=== PATIENT | female | born 1930 | race Caucasian/White ===

== ENCOUNTER 2018-06-12 05:49 | Inpatient (IN) ==
[2018-06-04 10:35] LABS: Basophils % 0.5 % (0.0-0.8); Eosinophils # 0.1 10*3/uL (0.0-0.87); Hematocrit 37.2 VOL% (35.7-47.0); Hemoglobin 11.8 GM/DL (12.0-16.0); Immature Granulocytes % 0.5 %; Immature Granulocytes Absolute 0.03 #; Lymphocytes # 1.2 10*3/uL (1.4-4.0); Lymphocytes % 20.4 % (21.3-54.2); Mean Corpuscular HGB Conc 31.7 GM/DL (32-36); Mean Corpuscular Hemoglobin 30 PG (27-34); Mean Corpuscular Volume 95.9 FL (87-102); Mean Platelet Volume 11.1 FL (9.6-12.0); Monocytes # 0.6 10*3/uL (0.11-0.8); Monocytes % 9.5 % (1.7-12.7); Neutrophils % 67.1 % (38.7-73.9); Platelet Count 207 T/CUMM (130-400); Red Blood Count 3.88 MC/CUMM (3.8-5.5); Red Cell Distribution Width 14.4 % (9.3-17.3)
[2018-06-04 10:54] LABS: Calcium 9.4 MG/DL (8.5-10.1); Osmolality,Calculated 278.5 MOS/KG (273-304); Potassium 4.7 MMOL/L (3.5-5.1)
[2018-06-04 10:57] LABS: Apearance,Urine CLEAR (Clear); Bilirubin,Urine Negative (Negative); Blood, Urine Large mg/dL (Negative); Glucose,Urine (UA) Negative (Negative); Ketones,Urine Negative (Negative); Nitrite,Urine Negative (Negative); Protein,Urine Negative; RBC,Urine 1 /HPF (0-4); Squamous Epithelial Cell,Urine Occasional /HPF (0-10); Urine Color Straw (Yellow); Urine Specific Gravity 1.002 (1.001-1.035); Urine Urobilinogen < 2.0 EU/DL (0.2-1.0); WBC,Urine 1 /HPF (0-6)
[2018-06-12] MEDS ORDERED: FAMOTIDINE 20 MG TABLET PO ONE (06:00)
[2018-06-12] MEDS: LACTATED RINGERS 1,000 ML IV SCH ×2 (06:23→08:46)
[2018-06-12] MEDS ORDERED: LEVOFLOXACIN INJ 500 MG in PREMIX 1 EACH IV ONE (06:30)
[2018-06-12] MEDS ORDERED: FAMOTIDINE 20 MG TABLET ONE (06:42)
[2018-06-12] MEDS ORDERED: LEVOFLOXACIN INJ 100 ML IV ONE (06:42)
[2018-06-12] MEDS ORDERED: ALVIMOPAN 12 MG CAPSULE ONE (06:42)
[2018-06-12] MEDS ORDERED: ALVIMOPAN 12 MG CAPSULE PO ONE (07:00)
[2018-06-12] MEDS ORDERED: SUGAMMADEX 200 MG/2 ML VIAL IV ONE (09:43)
[2018-06-12] MEDS ORDERED: FEXOFENADINE 180 MG TABLET PO PRN (10:36)
[2018-06-12] MEDS ORDERED: MECLIZINE 12.5 MG TABLET PO PRN (10:36)
[2018-06-12] MEDS ORDERED: DENOSUMAB 60 MG/ML SYRINGE SUBCUT PRN (11:00)
[2018-06-12] MEDS ORDERED: PROPOFOL 200 MG/20 ML VIAL IV ONE (11:00)
[2018-06-12] MEDS ORDERED: ePHEDrine 50 MG/ML AMP ONE (11:01)
[2018-06-12] MEDS ORDERED: ONDANSETRON 4 MG/2 ML VIAL ONE (11:02)
[2018-06-12] MEDS ORDERED: PHENYLEPHRINE 1 MG/10 ML SYRINGE IV ONE (11:02)
[2018-06-12] MEDS ORDERED: ROCURONIUM 100 MG/10 ML VIAL IV ONE (11:02)
[2018-06-12] MEDS ORDERED: GLYCOPYRROLATE 0.4 MG/2 ML VIAL ONE (11:02)
[2018-06-12] MEDS ORDERED: HYDROmorphone 2 MG/1 ML VIAL IV PRN (11:09)
[2018-06-12] MEDS ORDERED: ONDANSETRON 4 MG/2 ML VIAL IV PRN (11:09)
[2018-06-12 11:41] LABS: Apearance,Urine CLEAR (Clear); Bilirubin,Urine Negative (Negative); Blood, Urine Small mg/dL (Negative); Glucose,Urine (UA) Negative (Negative); Ketones,Urine Negative (Negative); Nitrite,Urine Negative (Negative); Protein,Urine Negative; RBC,Urine 8 /HPF (0-4); Squamous Epithelial Cell,Urine Occasional /HPF (0-10); Urine Color Yellow (Yellow); Urine Specific Gravity 1.011 (1.001-1.035); Urine Urobilinogen < 2.0 EU/DL (0.2-1.0); WBC,Urine 1 /HPF (0-6)
[2018-06-12] MEDS: SODIUM CHLORIDE 0.45% 1,000 ML IV SCH ×2 (12:31→22:21)
[2018-06-12] MEDS: MORPHINE 4 MG/1 ML VIAL IV PRN ×2 (15:01→22:13)
[2018-06-12] MEDS: ONDANSETRON 4 MG/2 ML VIAL IV PRN (15:01)
[2018-06-12] MEDS: MAGNESIUM CHLORIDE 64 MG TABLET PO SCH (20:47)
[2018-06-12] MEDS: CALCIUM (CARBONATE)/VITAMIN D 600 MG-400 UNIT TABLET PO SCH (20:47)
[2018-06-12] MEDS: FAMOTIDINE 20 MG TABLET PO SCH (20:48)
[2018-06-13] MEDS: MORPHINE 4 MG/1 ML VIAL IV PRN (06:36)
[2018-06-13] MEDS: LEVOTHYROXINE 112 MCG TABLET PO SCH (06:37)
[2018-06-13 07:18] LABS: Basophils % 0.1 % (0.0-0.8); Eosinophils % 0.1 % (0.00-10.9); Hematocrit 31.2 VOL% (35.7-47.0); Hemoglobin 9.9 GM/DL (12.0-16.0); Immature Granulocytes % 0.6 %; Immature Granulocytes Absolute 0.04 #; Lymphocytes % 14.3 % (21.3-54.2); Mean Corpuscular HGB Conc 31.7 GM/DL (32-36); Mean Corpuscular Hemoglobin 30 PG (27-34); Mean Corpuscular Volume 95.7 FL (87-102); Mean Platelet Volume 11.6 FL (9.6-12.0); Monocytes # 0.7 10*3/uL (0.11-0.8); Monocytes % 9.5 % (1.7-12.7); Neutrophils # 5.4 10*3/uL (1.4-7.4); Neutrophils % 75.4 % (38.7-73.9); Platelet Count 178 T/CUMM (130-400); Red Blood Count 3.26 MC/CUMM (3.8-5.5); Red Cell Distribution Width 14.6 % (9.3-17.3); White Blood Count 7.1 T/CUMM (4-12)
[2018-06-13 07:39] LABS: Calcium 7.4 MG/DL (8.5-10.1)
[2018-06-13] MEDS: CHOLECALCIFEROL 1,000 UNIT TABLET PO SCH (08:56)
[2018-06-13] MEDS: MULTIVITAMIN (CENTRUM) TABLET PO SCH (08:56)
[2018-06-13] MEDS: FAMOTIDINE 20 MG TABLET PO SCH ×2 (08:57→21:24)
[2018-06-13] MEDS: BISOPROLOL 5 MG TABLET PO SCH (08:57)
[2018-06-13] MEDS: MAGNESIUM CHLORIDE 64 MG TABLET PO SCH ×2 (08:57→21:24)
[2018-06-13] MEDS: ALLOPURINOL 300 MG TABLET PO SCH (08:57)
[2018-06-13] MEDS: CALCIUM (CARBONATE)/VITAMIN D 600 MG-400 UNIT TABLET PO SCH ×2 (08:57→21:23)
[2018-06-13] MEDS: SPIRONOLACTONE 25 MG TABLET PO SCH (09:16)
[2018-06-13] MEDS: SODIUM CHLORIDE 0.45% 1,000 ML IV SCH ×2 (09:16→21:24)
[2018-06-13] MEDS: POLYETHYLENE GLYCOL POWDER 17 GM PACK PO SCH (09:16)
[2018-06-13] MEDS: ONDANSETRON 4 MG/2 ML VIAL IV PRN (10:48)
[2018-06-13] MEDS ORDERED: PANTOPRAZOLE 40 MG TABLET PO ONE (19:01)
[2018-06-14] MEDS: SODIUM CHLORIDE 0.45% 1,000 ML IV SCH ×2 (05:36→18:23)
[2018-06-14 05:55] LABS: Hematocrit 31.2 VOL% (35.7-47.0); Hemoglobin 9.9 GM/DL (12.0-16.0)
[2018-06-14 06:07] LABS: Calcium 8.2 MG/DL (8.5-10.1); Osmolality,Calculated 267.4 MOS/KG (273-304); Potassium 4.2 MMOL/L (3.5-5.1)
[2018-06-14] MEDS: LEVOTHYROXINE 112 MCG TABLET PO SCH (06:20)
[2018-06-14] MEDS ORDERED: BISACODYL 10 MG SUPP RECTAL PRN (07:41)
[2018-06-14] MEDS: CHOLECALCIFEROL 1,000 UNIT TABLET PO SCH (09:30)
[2018-06-14] MEDS: POLYETHYLENE GLYCOL POWDER 17 GM PACK PO SCH (09:31)
[2018-06-14] MEDS: SPIRONOLACTONE 25 MG TABLET PO SCH (09:32)
[2018-06-14] MEDS: FAMOTIDINE 20 MG TABLET PO SCH ×2 (09:32→21:48)
[2018-06-14] MEDS: BISOPROLOL 5 MG TABLET PO SCH (09:32)
[2018-06-14] MEDS: ALLOPURINOL 300 MG TABLET PO SCH (09:33)
[2018-06-14] MEDS: CALCIUM (CARBONATE)/VITAMIN D 600 MG-400 UNIT TABLET PO SCH ×2 (09:33→21:48)
[2018-06-14] MEDS: PANTOPRAZOLE 40 MG TABLET PO SCH (09:33)
[2018-06-14] MEDS: MAGNESIUM CHLORIDE 64 MG TABLET PO SCH ×2 (09:33→21:48)
[2018-06-14] MEDS: MULTIVITAMIN (CENTRUM) TABLET PO SCH ×2 (09:35→09:36)
[2018-06-15] MEDS: SODIUM CHLORIDE 0.45% 1,000 ML IV SCH ×2 (04:11→11:44)
[2018-06-15] MEDS: LEVOTHYROXINE 112 MCG TABLET PO SCH (06:16)
[2018-06-15] MEDS ORDERED: LACTULOSE 20 GM/30 ML UDCUP PO ONE (08:00)
[2018-06-15] MEDS: POLYETHYLENE GLYCOL POWDER 17 GM PACK PO SCH (09:55)
[2018-06-15] MEDS: CALCIUM (CARBONATE)/VITAMIN D 600 MG-400 UNIT TABLET PO SCH ×2 (09:56→21:29)
[2018-06-15] MEDS: MULTIVITAMIN (CENTRUM) TABLET PO SCH (09:56)
[2018-06-15] MEDS: MAGNESIUM CHLORIDE 64 MG TABLET PO SCH ×2 (09:56→21:29)
[2018-06-15] MEDS: CHOLECALCIFEROL 1,000 UNIT TABLET PO SCH (09:56)
[2018-06-15] MEDS: SPIRONOLACTONE 25 MG TABLET PO SCH (09:56)
[2018-06-15] MEDS: FAMOTIDINE 20 MG TABLET PO SCH ×2 (09:56→21:29)
[2018-06-15] MEDS: ALLOPURINOL 300 MG TABLET PO SCH (09:56)
[2018-06-15] MEDS: PANTOPRAZOLE 40 MG TABLET PO SCH (09:56)
[2018-06-15] MEDS: BISOPROLOL 5 MG TABLET PO SCH (09:56)
[2018-06-15] MEDS ORDERED: SODIUM PHOSPHATE ENEMA 133 ML BOTTLE RECTAL PRN (12:37)
[2018-06-16] MEDS ORDERED: SODIUM CHLORIDE 0.9% 500 ML IV ONE (05:07)
[2018-06-16 05:17] LABS: Basophils % 0.1 % (0.0-0.8); Eosinophils # 0.1 10*3/uL (0.0-0.87); Eosinophils % 0.6 % (0.00-10.9); Hematocrit 32.6 VOL% (35.7-47.0); Hemoglobin 10.5 GM/DL (12.0-16.0); Immature Granulocytes % 0.6 %; Immature Granulocytes Absolute 0.05 #; Lymphocytes # 0.8 10*3/uL (1.4-4.0); Lymphocytes % 9.3 % (21.3-54.2); Mean Corpuscular HGB Conc 32.2 GM/DL (32-36); Mean Corpuscular Hemoglobin 30 PG (27-34); Mean Corpuscular Volume 94.2 FL (87-102); Mean Platelet Volume 11.3 FL (9.6-12.0); Monocytes # 0.8 10*3/uL (0.11-0.8); Monocytes % 8.9 % (1.7-12.7); Neutrophils # 7.2 10*3/uL (1.4-7.4); Neutrophils % 80.5 % (38.7-73.9); Platelet Count 176 T/CUMM (130-400); Red Blood Count 3.46 MC/CUMM (3.8-5.5); Red Cell Distribution Width 14.6 % (9.3-17.3)
[2018-06-16 05:35] LABS: Potassium 3.5 MMOL/L (3.5-5.1)
[2018-06-16] MEDS ORDERED: DILTIAZEM 50 MG/10 ML VIAL IV ONE (05:54)
[2018-06-16] MEDS: dilTIAZem Drip 125 MG/125 ML PREMIX IV SCH (06:06)
[2018-06-16] MEDS: LEVOTHYROXINE 112 MCG TABLET PO SCH (06:24)
[2018-06-16] MEDS: BISOPROLOL 5 MG TABLET PO SCH (08:49)
[2018-06-16] MEDS: CALCIUM (CARBONATE)/VITAMIN D 600 MG-400 UNIT TABLET PO SCH ×2 (08:49→20:32)
[2018-06-16] MEDS: ALLOPURINOL 300 MG TABLET PO SCH (08:49)
[2018-06-16] MEDS: SPIRONOLACTONE 25 MG TABLET PO SCH (08:49)
[2018-06-16] MEDS: POLYETHYLENE GLYCOL POWDER 17 GM PACK PO SCH (08:49)
[2018-06-16] MEDS: CHOLECALCIFEROL 1,000 UNIT TABLET PO SCH (08:50)
[2018-06-16] MEDS: MAGNESIUM CHLORIDE 64 MG TABLET PO SCH ×2 (08:50→20:32)
[2018-06-16] MEDS: PANTOPRAZOLE 40 MG TABLET PO SCH (08:50)
[2018-06-16] MEDS: MULTIVITAMIN (CENTRUM) TABLET PO SCH (08:50)
[2018-06-16] MEDS: ASPIRIN EC 325 MG TABLET PO SCH (08:50)
[2018-06-16] MEDS: FAMOTIDINE 20 MG TABLET PO SCH ×2 (08:50→20:32)
[2018-06-16] MEDS ORDERED: DILTIAZEM 30 MG TABLET PO SCH (09:00)
[2018-06-16] MEDS ORDERED: SODIUM CHLORIDE 0.9% 1,000 ML IV SCH (09:00)
[2018-06-16] MEDS: DILTIAZEM 30 MG TABLET PO SCH ×2 (14:51→20:32)
[2018-06-17] MEDS: LEVOTHYROXINE 112 MCG TABLET PO SCH (06:03)
[2018-06-17] MEDS: dilTIAZem Drip 125 MG/125 ML PREMIX IV SCH (08:08)
[2018-06-17] MEDS: CALCIUM (CARBONATE)/VITAMIN D 600 MG-400 UNIT TABLET PO SCH ×2 (08:09→21:58)
[2018-06-17] MEDS: BISOPROLOL 5 MG TABLET PO SCH (08:09)
[2018-06-17] MEDS: MULTIVITAMIN (CENTRUM) TABLET PO SCH (08:09)
[2018-06-17] MEDS: MAGNESIUM CHLORIDE 64 MG TABLET PO SCH ×2 (08:10→21:57)
[2018-06-17] MEDS: PANTOPRAZOLE 40 MG TABLET PO SCH (08:11)
[2018-06-17] MEDS: ASPIRIN EC 325 MG TABLET PO SCH (08:11)
[2018-06-17] MEDS: ALLOPURINOL 300 MG TABLET PO SCH (08:11)
[2018-06-17] MEDS: SPIRONOLACTONE 25 MG TABLET PO SCH (08:11)
[2018-06-17] MEDS: CHOLECALCIFEROL 1,000 UNIT TABLET PO SCH (08:12)
[2018-06-17] MEDS: POLYETHYLENE GLYCOL POWDER 17 GM PACK PO SCH (08:12)
[2018-06-17] MEDS: DILTIAZEM 30 MG TABLET PO SCH ×3 (08:13→21:58)
[2018-06-17] MEDS: FAMOTIDINE 20 MG TABLET PO SCH ×2 (08:24→21:58)
[2018-06-17 08:50] LABS: Calcium 7.9 MG/DL (8.5-10.1); Osmolality,Calculated 278.5 MOS/KG (273-304); Potassium 4.2 MMOL/L (3.5-5.1)
[2018-06-18 06:01] LABS: Basophils % 0.5 % (0.0-0.8); Eosinophils # 0.2 10*3/uL (0.0-0.87); Eosinophils % 2.3 % (0.00-10.9); Hematocrit 32.7 VOL% (35.7-47.0); Hemoglobin 10.3 GM/DL (12.0-16.0); Immature Granulocytes % 0.8 %; Immature Granulocytes Absolute 0.06 #; Lymphocytes # 1.1 10*3/uL (1.4-4.0); Lymphocytes % 15.2 % (21.3-54.2); Mean Corpuscular HGB Conc 31.5 GM/DL (32-36); Mean Corpuscular Hemoglobin 30 PG (27-34); Mean Corpuscular Volume 94.8 FL (87-102); Mean Platelet Volume 11.3 FL (9.6-12.0); Monocytes % 12.8 % (1.7-12.7); Neutrophils # 5.1 10*3/uL (1.4-7.4); Neutrophils % 68.4 % (38.7-73.9); Platelet Count 216 T/CUMM (130-400); Red Blood Count 3.45 MC/CUMM (3.8-5.5); Red Cell Distribution Width 14.7 % (9.3-17.3); White Blood Count 7.4 T/CUMM (4-12)
[2018-06-18 06:12] LABS: Calcium 8.1 MG/DL (8.5-10.1); Osmolality,Calculated 279.4 MOS/KG (273-304); Potassium 3.6 MMOL/L (3.5-5.1)
[2018-06-18] MEDS: LEVOTHYROXINE 112 MCG TABLET PO SCH (06:46)
[2018-06-18] MEDS: dilTIAZem Drip 125 MG/125 ML PREMIX IV SCH (06:46)
[2018-06-18] MEDS: CALCIUM (CARBONATE)/VITAMIN D 600 MG-400 UNIT TABLET PO SCH ×2 (09:00→21:39)
[2018-06-18] MEDS: CHOLECALCIFEROL 1,000 UNIT TABLET PO SCH (10:02)
[2018-06-18] MEDS: MAGNESIUM CHLORIDE 64 MG TABLET PO SCH ×2 (10:02→21:39)
[2018-06-18] MEDS: DILTIAZEM 30 MG TABLET PO SCH ×3 (10:02→21:39)
[2018-06-18] MEDS: PANTOPRAZOLE 40 MG TABLET PO SCH (10:02)
[2018-06-18] MEDS: ALLOPURINOL 300 MG TABLET PO SCH (10:02)
[2018-06-18] MEDS: MULTIVITAMIN (CENTRUM) TABLET PO SCH (10:03)
[2018-06-18] MEDS: FAMOTIDINE 20 MG TABLET PO SCH ×2 (10:03→21:39)
[2018-06-18] MEDS: SPIRONOLACTONE 25 MG TABLET PO SCH (10:03)
[2018-06-18] MEDS: BISOPROLOL 5 MG TABLET PO SCH (10:03)
[2018-06-18] MEDS: POLYETHYLENE GLYCOL POWDER 17 GM PACK PO SCH (10:04)
[2018-06-18] MEDS: ASPIRIN EC 325 MG TABLET PO SCH (16:01)
[2018-06-19] MEDS: LEVOTHYROXINE 112 MCG TABLET PO SCH (07:00)
[2018-06-19] MEDS: CHOLECALCIFEROL 1,000 UNIT TABLET PO SCH (10:02)
[2018-06-19] MEDS: FAMOTIDINE 20 MG TABLET PO SCH (10:02)
[2018-06-19] MEDS: BISOPROLOL 5 MG TABLET PO SCH (10:02)
[2018-06-19] MEDS: MAGNESIUM CHLORIDE 64 MG TABLET PO SCH (10:03)
[2018-06-19] MEDS: ALLOPURINOL 300 MG TABLET PO SCH (10:03)
[2018-06-19] MEDS: MULTIVITAMIN (CENTRUM) TABLET PO SCH (10:03)
[2018-06-19] MEDS: SPIRONOLACTONE 25 MG TABLET PO SCH (10:03)
[2018-06-19] MEDS: PANTOPRAZOLE 40 MG TABLET PO SCH (10:03)
[2018-06-19] MEDS: DILTIAZEM 30 MG TABLET PO SCH (10:04)
[2018-06-19 10:08] VITALS: BP 189/79
[2018-06-19] MEDS: CALCIUM (CARBONATE)/VITAMIN D 600 MG-400 UNIT TABLET PO SCH (10:08)
[2018-06-20] MEDS ORDERED: POLYETHYLENE GLYCOL POWDER 17 GM PACK PO SCH (09:00)
== END 2018-06-19 14:25 | disposition home health service (06) | DRG 660 ==
LOC: N.OR 05:49 → N.SDSINP 05:50 → N.5E 11:55 → N.CC 06-16 05:20 → N.5E 06-17 21:03
PROVIDERS: ADMIT Urology; ATTEND Urology